=== PATIENT | male | born 1995 | race Caucasian/White ===

== ENCOUNTER 2022-05-09 09:12 | Emergency (ER) | payer OTHER ==
[~2022-05-09] VITALS: Ht 172.7 cm; Wt 89.0 kg
[2022-05-09 09:29] VITALS: BP 105/63
[2022-05-09] MEDS ORDERED: AMOX-494 PO (11:59)
[2022-05-09] MEDS ORDERED: IBUP-2029 PO (11:59)
== END 2022-05-09 12:59 | disposition home or self-care (01) ==
LOC: ER 09:12
DX: J02.9 Acute pharyngitis, unspecified (principal)
CPT/HCPCS: 99283